=== PATIENT | female | born 1975 | race American Indian/Alaskan Native ===

== ENCOUNTER 2016-10-19 12:19 | Emergency (ER) | payer OTHER ==
[2016-10-19 15:37] VITALS: BP 99/73
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
== END 2016-10-19 15:37 | disposition home or self-care (01) ==
LOC: FB.ED 12:19
DX: S80.02XA Contusion of left knee, initial encounter (principal); S80.01XA Contusion of right knee, initial encounter; S40.012A Contusion of left shoulder, initial encounter; S20.221A Contusion of right back wall of thorax, initial encounter; F17.210 Nicotine dependence, cigarettes, uncomplicated; S06.0X0A Concussion without loss of consciousness, initial encounter; Y04.8XXA Assault by other bodily force, initial encounter
CPT/HCPCS: 36415; 70450; 70486; 72125; 81001; 81025; 85025; 99284